=== PATIENT | female | born 1970 ===

== ENCOUNTER 2016-12-28 08:07 | Outpatient (CLI) | payer MEDICARE, MEDICAID ==
[~2016-12-28] VITALS: Ht 167.6 cm; Wt 142.6 kg
--- NOTE | ~2016-12-28 | OR ---
PATIENT'S NAME: ELSA BAHENA [facility] AGE: 46 Y [address] ROOM: [place] [address] [facility] ADMIT DATE: 12/28/2016 OR/Procedure Report DISCHARGE DATE: FAMILY PHYSICIAN: Martha Koehler MD ATTENDING PHYSICIAN: MARY MARIE SURGEON: Mary Marie MD HOUSE SERVANT: DATE OF PROCEDURE: 12/28/2016 Indication: Symptomatic atrial fibrillation PROCEDURE PERFORMED: Cardioversion. Rhythm prior to cardioversion: Atrial fibrillation Rhythm post cardioversion: Sinus rhythm DESCRIPTION OF PROCEDURE: The procedure was described to the patient. Risks and benefits were discussed with the patient, and informed consent was obtained. Anesthesia was provided by the team of anesthetists. The patient was given synchronized DC shocks with biphasic cardioverter defibrillator at 100 joules, 200 joules, and 300 joules, following which she converted to sinus rhythm at 61 beats per minute. The patient tolerated the procedure well. No immediate complications were seen. MARY MARIE MD LY/modl /[id number] d: 12/28/16 1140 t: 12/31/16 1823, OPERATIVE SUMMARY
[~2016-12-28 08:07] MED LIST: ALBUTEROL2.5 MG/0.5 INH; AMBIEN5 MG PO; CARDIZEM CD (T120 MG PO; CYANOCOBAL1000 MCG/1 SUB-Q; DIAMOX250 MG PO; DRISDOL 5050000 UNIT PO; INJECTAFER750 MG/15 IV; LOPRESSOR25 MG PO; MECLIZINE HCL25 MG PO; MEDROL4 M2; MOBIC15 MG PO; NEXIUM40 MG PO; NORCO 7.5-3251 EACH PO; NORVASC5 MG PO; OXYGEN M-15; PROMETHAZINE12.5 M1 PO; PROVENTIL OR V6.7 GM INH; STOOL SOFTENER100 M1 PO; SURFAK240 MG PO; SYMBICORT 16010.2 GM INH; TAMBOCOR100 MG PO; TESSALON PERLE100 MG PO; VALIUM10 MG PO; XARELTO20 MG PO; Z-PAK250 MG PO; ZOFRAN4 MG PO
--- NOTE | 2016-12-28 09:59 | NUR ---
12/28/[address] MARIE TO BEDSIDE. REQUESTED PORTABLE CXR AND TO CALL WITH RESULT. 1050 CXR COMPLETE. PATIENT C/O ANXIETY. Nata DE LEON CRNA NOTIFIED. 1MG IV VERSED GIVEN. TOLERATED WELL
== END 2016-12-28 18:00 | disposition disaster alternative care site (69) ==
LOC: GPOC 08:07 → GPCU 08:07 → GPOC 18:00
PROC: 5A2204Z Restoration of Cardiac Rhythm, Single (ICD-10-PCS; principal; 2016-12-28)
DX: I48.1 Persistent atrial fibrillation (principal); I10 Essential (primary) hypertension; S50.02XA Contusion of left elbow, initial encounter; S20.222A Contusion of left back wall of thorax, initial encounter; J45.909 Unspecified asthma, uncomplicated; F43.10 Post-traumatic stress disorder, unspecified; W18.09XA Striking against other object with subsequent fall, initial encounter; F41.0 Panic disorder [episodic paroxysmal anxiety]; Z79.891 Long term (current) use of opiate analgesic; Z79.51 Long term (current) use of inhaled steroids; Z79.899 Other long term (current) drug therapy; Z87.891 Personal history of nicotine dependence; Z82.49 Family history of ischemic heart disease and other diseases of the circulatory system; Z99.81 Dependence on supplemental oxygen
CPT/HCPCS: J2001; J2250; J7030

== ENCOUNTER 2017-03-27 18:20 | Observation (INO) | payer MEDICARE, MEDICAID ==
[~2017-03-27] VITALS: Ht 170.2 cm; Wt 150.5 kg
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
--- NOTE | ~2017-03-27 | ER ---
PATIENT'S NAME: ELSA BAHENA [facility] AGE: 46 Y [address] ROOM: [place] [address] LOCATION: [facility] ADMIT DATE: 03/28/2017 ER/Outpatient Report DISCHARGE DATE: FAMILY PHYSICIAN: PHYSICIAN, UNKNOWN ATTENDING PHYSICIAN: LUCIA EVANGELISTA V CHIEF COMPLAINT: Low back and right leg pain. HISTORY OF PRESENT ILLNESS: The patient states that she has chronic pain; however, her pain today is intolerable and she cannot walk. It is located in her right low back and gluteal region. She feels a grinding sensation and sharp sensation whenever she moves her leg. Today, the pain has been so bad that she cannot even move her leg and she notes a worsening weakness. She has taken her pain medicine and muscle relaxer for this with no improvement. No other acute findings. PAST MEDICAL HISTORY: Documented on the record and reviewed by me. SOCIAL HISTORY: Documented on the record and reviewed by me. MEDICATIONS: Documented on the record and reviewed by me. ALLERGIES: DOCUMENTED ON THE RECORD AND REVIEWED BY ME. REVIEW OF SYSTEMS: All systems reviewed and negative except as noted in the HPI. PHYSICAL EXAMINATION: VITAL SIGNS: Blood pressure 145/76, pulse is 69, respiratory rate is 20, temperature 98.7, SpO2 is 95% on room air. Pain is rated 10/10. GENERAL: An age appropriate female, in obvious pain. No acute distress. Flat on the exam table. NEUROLOGIC: The patient is awake and alert. GCS is 15. She does follow commands in all extremities. The right lower extremity is notable for marked weakness of the hip flexors, the quadriceps, and the calf muscle complex. She has intact sensation throughout. The strength of the right lower extremity is 2+ compared to 5/5 on the left in all muscle groups. HEENT: Normocephalic, atraumatic. Eyes are PERRL. Oropharynx is clear. PATIENT'S NAME: ELSA BAHENA [facility] AGE: 46 Y [address] ROOM: [address] [address] LOCATION: [facility] ADMIT DATE: 03/28/2017 ER/Outpatient Report DISCHARGE DATE: FAMILY PHYSICIAN: PHYSICIAN, UNKNOWN ATTENDING PHYSICIAN: KAGANAS,LUCIA V NECK: Supple. Trachea is midline. CHEST: Heart is regular rate and rhythm with no murmurs. LUNGS: Clear to auscultation bilateral with no rhonchi, wheezes, or rales. ABDOMEN: Soft, nontender, and nondistended. No rebound or guarding. BACK: Nontender in the midline. There is some right paraspinal tenderness and bruising over the right SI joint in the right sciatic nerve. EXTREMITIES: Warm and well perfused. SKIN: Dry and intact. No obvious rashes. LABORATORY DATA AND X-RAYS: MRI of the lumbar spine with no acute changes. No signs of cauda equina syndrome per radiology's read. IMPRESSION: Intractable right lower back pain, likely sciatica. EMERGENCY DEPARTMENT COURSE: The patient was seen and evaluated. She was given Toradol and multiple doses of Dilaudid with no improvement in her pain. The patient's neuro exam did improve with better pain control. However, it remained much weaker than noted from the prior notes from last fall. For these reasons, we will admit the patient to the hospitalist service. As I cannot control her pain adequately enough to get her to walk. Of note, on multiple re-evaluations, the patient was found to be texting comfortably on her phone, but would develop significant pain with any motion for the examiner. MD SHADI BARRIOS/joel /[id number] d: 03/28/17 1146 t: 04/03/17 0922, OUTPATIENT REPORT
--- NOTE | ~2017-03-27 | DS ---
PATIENT'S NAME: ELSA BAHENA [facility] AGE: 46 Y [address] ROOM: [address] [address] LOCATION: [facility] ADMIT DATE: 03/28/2017 Discharge Summary DISCHARGE DATE: 03/28/2017 FAMILY PHYSICIAN: Martha Koehler MD ATTENDING PHYSICIAN: Enzo Ayala V FINAL DIAGNOSES: 1. Severe low back pain. 2. Degenerative lumbar spine disease. 3. Chronic atrial fibrillation. 4. Long-term anticoagulation on Xarelto. REASON FOR ADMISSION: The patient was admitted with worsening lower back pain. In the emergency room, we were unable to control her pain with oral narcotics. She was admitted and placed on IV steroids. LABORATORY DATA: None. X-RAY DATA: MRI of the lumbar spine showed degenerative changes, but there was no evidence of cord compression. There was only mild bilateral foraminal narrowing at L4-L5. HOSPITAL COURSE: The patient was admitted after presenting to the emergency room with severe back pain. She was started on IV steroids. She was able to get some relief from the pain. Her other home medications were continued. The morning of the , she was up ambulating in the hallway with the nurses, and stated that she thought she would be able to go home. The patient was seen by myself; and at that time, I did have to stimulate her to wake her up. This was somewhat frustrating for her. At that time, she was told that she would be going home for 2 reasons, one that her pain was controlled, and then she was on observation status, and we would hope to get her out within 24 hours. She was very frustrated with this. I did speak at length with her primary care provider and she did concur with my plan to use oral steroids with a followup in the clinic. DISCHARGE INSTRUCTIONS: The patient is discharged to home. Recommended to see Dr. Koehler in 3-5 days. Office will contact her with an appointment time. DISCHARGE MEDICATIONS: 1. Valium 10 mg every 8 hours as needed for pain. 2. [place] 7.5/325 two every 6 hours as needed for pain. 3. Promethazine 12.5 mg p.o. every 6 hours for nausea. 4. Xarelto 20 mg daily. 5. Symbicort 160/4.5 2 puffs daily. 6. Albuterol 1 inhalation every 4 hours. PATIENT'S NAME: ELSA BAHENA [facility] AGE: 46 Y [address] ROOM: [address] [place] [id number] LOCATION: [facility] ADMIT DATE: 03/28/2017 Discharge Summary DISCHARGE DATE: 03/28/2017 FAMILY PHYSICIAN: Martha Koehler MD ATTENDING PHYSICIAN: Enzo Ayala V 7. Norvasc 5 mg at bedtime. 8. Injectafer 750 mg once monthly at [facility]. 9. Vitamin B12 a 1000 mcg subcu every 30 days. 10. Colace 200 mg at bedtime. 11. Nexium 40 mg daily. 12. Metoprolol 12.5 mg twice daily. 13. Tambocor 100 mg twice daily. 14. Meclizine 25 mg at bedtime. 15. Ambien 5 mg at bedtime. 16. Elavil 50 mg at bedtime. 17. Flonase 1 spray each nostril for allergies. 18. Medrol Dosepak, which she was instructed to start the morning of March 29. MARCE ABEBE MD LAW/modl /[id number] CC: Martha Koehler MD d: 03/29/17 0146 t: 03/29/17 192, DISCHARGE SUMMARY
[~2017-03-27 18:20] MED LIST changes: -ELAVIL50 MG PO; -FLONASE 50 MCG/16 GM NOSE; -FLORASTOR250 MG PO; -HUMIBID LA (MU600 MG PO; -LEVAQUIN 750 M750 MG PO; -PENICILLIN V P500 MG PO; -medrol dose pack
--- NOTE | 2017-03-28 04:11 | NUR ---
Patient admitted to floor by cart from emergency dept. C/O back pain not relieved by pain medication at home. MRI completed in emergency dept with some lumbar degenerative changes. History of L4-L5 stenosis. History of A.fib. Numbness to right leg. Oriented to person and place. Patient can state year and month. PERRLA 3.0
--- NOTE | 2017-03-28 04:21 | NUR ---
Significant Event: Arrived to floor at 0155. Admitted for pain in back. History of stenosis L4-L5. MRI done in emergency department showing lumbar degenerative changes. Follow up:
--- NOTE | 2017-03-28 04:57 | NUR ---
Significant Event: Patient arrived to floor at 0155 from emergency department. Ambulates 1A with walker and gait belt. Admitted for pain to back. MRI done in emergency department showing lumbar degenerative changes. IV to L)forearm. History of A.fib. Oriented to person and place. Oriented to month and year. Numbness to right leg. Zofran will be given for c/o nausea. K-pad in use. Follow up:
[2017-03-28] MEDS ORDERED: FLONASE 50 MCG/16 GM NOSE (08:26)
[2017-03-28] MEDS ORDERED: ELAVIL50 MG PO (08:26)
[2017-03-28] MEDS ORDERED: medrol dose pack (15:14)
--- NOTE | 2017-03-28 16:17 | NUR ---
written and verbal dismissal instructions given to pt. including diet, activity, prescriptions, blood clot prevention, med medication side effects and follow up care. verbalized understanding. awaiting ride home .
== END 2017-03-28 16:50 | disposition disaster alternative care site (69) ==
LOC: GMED 18:20 → GNTU 03-28 01:29
PROVIDERS: ADMIT Internal Medicine
DX: M54.5 Low back pain (principal); M51.36 Other intervertebral disc degeneration, lumbar region; I48.2 Chronic atrial fibrillation; E66.01 Morbid (severe) obesity due to excess calories; Z68.43 Body mass index [BMI] 50.0-59.9, adult; Z98.84 Bariatric surgery status; Z98.890 Other specified postprocedural states; Z79.01 Long term (current) use of anticoagulants; Z79.899 Other long term (current) drug therapy
CPT/HCPCS: C9113; G0378; G8978; G8979; G8980; G8987; G8988; G8989; J1170; J1885; J2405; J2920

== ENCOUNTER → 2017-03-27 | Outpatient (CLI) | payer MEDICARE, MEDICAID ==
[~2017-03-27] MED LIST changes: +ELAVIL50 MG PO; +FLONASE 50 MCG/16 GM NOSE; +FLORASTOR250 MG PO; +HUMIBID LA (MU600 MG PO; +LEVAQUIN 750 M750 MG PO; +PENICILLIN V P500 MG PO; +medrol dose pack
== END | disposition disaster alternative care site (69) ==
LOC: GAMB 17:54
DX: M54.9 Dorsalgia, unspecified (principal); G89.29 Other chronic pain; M84.48XD Pathological fracture, other site, subsequent encounter for fracture with routine healing; Z79.891 Long term (current) use of opiate analgesic
CPT/HCPCS: A0425; A0429

== ENCOUNTER 2017-05-05 14:43 | Inpatient (IN) | payer MEDICARE, MEDICAID ==
[~2017-05-05] VITALS: Ht 170.2 cm; Wt 148.6 kg
--- NOTE | ~2017-05-05 | HP ---
PATIENT'S NAME: ELSA BAHENA [facility] AGE: 46 Y [address] ROOM: [place] [address] LOCATION: [facility] ADMIT DATE: 05/05/2017 History & Physical DISCHARGE DATE: FAMILY PHYSICIAN: Martha Koehler MD ATTENDING PHYSICIAN: SARAH FELIX DATE OF SERVICE: ADDENDUM: The respiratory therapist brought a GlideScope in the emergency room and I was able to visualize the epiglottis and it was not inflamed. For further plan, refer to the original History and Physical for full details. MD NITHYA PRATT/joel /[id number] D: [id number] T: [id number] HISTORY & PHYSICAL
--- NOTE | ~2017-05-05 | PUL ---
PATIENT'S NAME: ELSA BAHENA [facility] AGE: 46 Y [address] ROOM: [place] [address] LOCATION: [facility] ADMIT DATE: 05/05/2017 Pulmonary DISCHARGE DATE: 05/09/2017 FAMILY PHYSICIAN: Martha Koehler MD ATTENDING PHYSICIAN: Michael Perdomo NAME OF PROCEDURE: Bedside Spirometry DATE OF PROCEDURE: May 06, 2017 TECH: ERMIAS Ramirez REASON FOR EXAM: Shortness of breath RESULTS: Spirometry revealed decreased FVC at 2.34 at 59% predicted, decreased FEV1 at 1.93 which is 60% predicted, normal FEV1/FVC ratio 82%. There are a significant bronchodilator response at the level of FEV1 and FVC. PHYSICIAN INTERPRETATION: This spirometry is suggestive of restrictive disease, full PFT is recommended for full lung volume evaluation. MD JOYCE HOPKINS/rahul /[id number] dtt: 07/16/17 Debora Serrato George S. dtd: 07/11/17 1126
--- NOTE | ~2017-05-05 | HP ---
[facility] 46 Y [address] ROOM: [place] [address] LOCATION: [facility] ADMIT DATE: 05/05/2017 History & Physical DISCHARGE DATE: FAMILY PHYSICIAN: Martha Koehler MD ATTENDING PHYSICIAN: SARAH FELIX DATE OF SERVICE: CHIEF COMPLAINT: Sore throat, and chills. HISTORY OF PRESENT ILLNESS: This is a 46-year-old, female who says that since last Saturday the patient has been experiencing chills and subjective sensation of fever, but she did not take any temperature at home. She also has sore throat and occasional dysphagia, but she denies any cough or chest pain or palpitation or shortness of breath. She also denies any saliva drooling or hot potato voice. These symptoms just kept progressively getting worse and today she came here for evaluation. The patient has not taken any antibiotics recently. The patient states that she does have recent sick contact where her and her son were sick with flu recently and they have already recovered. The patient says that she has had strep throat infection once many years ago when she was very young that she could hardly remember any details and was also not really sure if it was really a strep throat infection or not. The patient denies any confusion or any fall or any other symptoms. REVIEW OF SYSTEMS: As mentioned in History of Present Illness. All other systems were reviewed and they were negative except for those mentioned in the History of Present Illness. PAST MEDICAL HISTORY: 1. Hypertension. 2. Paroxysmal atrial fibrillation, on Xarelto and rate control and also antiarrhythmic. ALLERGIES: LORCET WHICH CAUSES RASH. HOME MEDICATIONS: Currently is being reconciled. SOCIAL HISTORY: The patient denies any cigarette or any illegal drug use. She is a social alcohol drinker, but she denies any alcohol abuse or any alcohol withdrawal. [facility] 46 Y [address] ROOM: [place] [address] LOCATION: [facility] ADMIT DATE: 05/05/2017 History & Physical DISCHARGE DATE: FAMILY PHYSICIAN: Martha Koehler MD ATTENDING PHYSICIAN: SARAH FELIX PAST SURGICAL HISTORY: 1. Status post left knee surgery. 2. Tubal ligation. 3. Hysterectomy. 4. Gastric bypass surgery in the past in 2000. 5. Cholecystectomy. 6. Appendectomy. FAMILY HISTORY: Mother had CKD, requiring dialysis. Father she could not remember much details, but says he also had diabetes. PHYSICAL EXAMINATION: VITAL SIGNS: At the time of my dictation, temperature 99.0, blood pressure 136/87, MAP of 75, respirations 16, heart rate 90, and saturation 97% on 1 L nasal cannula. GENERAL APPEARANCE: The patient is alert and oriented x3. The patient looks uncomfortable, but not in respiratory distress. HEENT: Pupils equally round and reactive to light. Extraocular muscles intact. Anicteric sclerae. Nasal turbinates are normal bilaterally. In the oropharynx, she does have swollen tonsils and also erythematous tonsils, but I could not appreciate exudates. CARDIOVASCULAR: Normal S1 and S2. Regular rate and rhythm. No murmurs. No rubs. No gallops. RESPIRATORY: Clear to auscultation. No rales. No rhonchi. No wheezing. No crackles. ABDOMEN: Obese, soft, nontender, nondistended, no mass, and bowel sounds are present. EXTREMITIES: No edema in upper or lower extremities. NEUROLOGICAL: Grossly nonfocal. SKIN: No ulcer, no rash, no cyanosis, but she is warm to touch. No erythema. LABORATORY DATA: Lactic acid 1.7, CPK 41, and troponin is less than 0.04. ProBNP is 365. White blood cells 20.5, hemoglobin 13.8, hematocrit 41.3, MCV 92.8, and platelets 223,000. Glucose 115, BUN 9, creatinine 0.8, sodium 140, potassium 3.9, chloride 106, CO2 of 22, calcium 8.6, total protein 7.1, albumin 3.0, AST 87, ALT 174, alkaline phosphatase 144, total bilirubin 0.6, and GFR more than 60. Anion gap 15.9, ESR 6. INR 1.17, PTT of 32. Urinalysis; 25 leukocytes, negative nitrite, 5-10 white blood cells, and a few bacteria. CK-MB is less than 0.5. Influenza antigen A and B screen negative. Procalcitonin is less than 0.05. IMAGING STUDIES: PATIENT'S NAME: ELSA BAHENA [facility] AGE: 46 Y [address] ROOM: [id number] [place], [place] [address] [facility] ADMIT DATE: 05/05/2017 History & Physical DISCHARGE DATE: FAMILY PHYSICIAN: Martha Koehler MD ATTENDING PHYSICIAN: SARAH FELIX EKG on admission showed sinus rhythm, heart rate of 97 beats per minute, FL 162 msec, QRS 130 milliseconds, and QTc is 389 milliseconds. Incomplete right bundle-branch block. T-wave inversion in the inferior leads. No ST elevation or ST depression. EMERGENCY ROOM COURSE: In the emergency room, the patient got 1 L of normal saline followed by the second liter running at 500 mL/h. The patient also got 1 dose of IV Zosyn that was given in the emergency room. Also got 1 dose of Tylenol p.o. 650 mg x1. ASSESSMENT AND PLAN: 1. Streptococcus pharyngitis with systemic inflammatory response syndrome: The sepsis order set has already been completed and is in the chart. The patient meets the criteria for systemic inflammatory response syndrome. Plan will be to continue with antibiotics and we will continue with the p.o. penicillin V 500 mg p.o. t.i.d. This is the first line choice for strep throat pharyngitis. IV fluids for hydration in the setting of systemic inflammatory response syndrome. P.o. Florastor 250 mg p.o. b.i.d. Follow up with the blood cultures and also urine culture. Repeat laboratories again in the morning. I am going to call the respiratory therapist or the certified registered nurse of Anesthesia to bring the GlideScope to look at her epiglottis to make sure that she also does not have typical looking epiglottitis due to her complaining of intermittent dysphagia. Fever controlled with p.o. Tylenol alternating with ibuprofen p.r.n. Protonix 40 mg p.o. daily. Further plan depends on clinical course. 2. Pain control for Streptococcus pharyngitis: I will use IV morphine p.r.n. She also has Tylenol and also ibuprofen p.r.n. for both fever and pain. Further plan depends on clinical course. I will also have her wear the EtCO2 monitor at all times. To monitor closely for the airway, to make sure she does not have any airway obstruction from the streptococcal pharyngitis. Given that patient is an obese patient, an airway will be difficult. Currently, the patient denies any shortness of breath and saturation is 98% on room air. Watch closely for the airway compromise. 3. Paroxysmal atrial fibrillation: Continue home medications which include antiarrhythmic and also with Xarelto. I will hold the rate control medication for now in the setting of systemic inflammatory response syndrome to not cause hypotension. Can always resume if necessary and if the blood pressure tolerates. 4. Transaminitis: This seems to be chronic based on the [employer] and she is already status post cholecystectomy. This could be nonalcoholic steatohepatitis due to her obesity. I will just trend the liver function testing again in the morning. She denies any abdominal pain in the right PATIENT'S NAME: ELSA BAHENA [facility] AGE: 46 Y [address] ROOM: [place] [address] [facility] AD[facility] DATE: 05/05/2017 History & Physical DISCHARGE DATE: FAMILY PHYSICIAN: Martha Koehler MD ATTENDING PHYSICIAN: SARAH FELIX [facility]. Hepatitis was also already checked back in 2014 and both the hepatitis C and B were nonreactive. 5. Deep venous thrombosis prophylaxis: The patient is already on Xarelto. 6. Code Status: She is a full code. Time spent in care on the day of admission 45 minutes where 25 minutes were spent in counseling and also by going over the plan of care with the patient and addressing all her questions and concerns. The remainder of the time was spent in interview, chart review, and also on the physical examination. Right now, I am going to call the respiratory therapist or Anesthesia to bring the GlideScope to look at her epiglottis. Further plan depends on clinical course. SARAH FELIX MD CC/modl /[id number] D: [id number] T: [id number] HISTORY & PHYSICAL
--- NOTE | ~2017-05-05 | DS ---
PATIENT'S NAME: ELSA BAHENA [facility] AGE: 46 Y [address] ROOM: [id number] [place] [address] LOCATION: GPCU ADMIT DATE: 05/05/2017 Discharge Summary DISCHARGE DATE: 05/09/2017 FAMILY PHYSICIAN: Martha Koehler MD ATTENDING PHYSICIAN: Michael Perdomo PRIMARY DIAGNOSES: 1. Sepsis. 2. Streptococcal pharyngitis. 3. E. coli urinary tract infection. 4. Asymptomatic bradycardia. 5. History of paroxysmal atrial fibrillation. 6. Morbid obesity. 7. Epiglottitis. PRINCIPAL PROCEDURES: None was indicated in the patient. LABORATORY DATA: On admission, lactic acid was 1.7, prior to discharge was 0.6, troponin was less than 0.040. Pro-BNP was 365. WBC prior to discharge was 12.7, H and H was stable at 12.2/37.7, and platelet was 226. Sodium was stable throughout the hospital stay, sodium was 145 upon discharge, potassium was 4.0, bicarb was 28, calcium was 8.5, BUN was 11, creatinine was stable throughout the hospital stay at 0.7, AST was 87, prior to discharge was 46, ALT was 174 upon discharge, prior to discharge was 121, albumin was 2.8, total bili was 0.6, and direct bili was 0.1. UA procalcitonin repeat was 0.15. Flu test was negative. MICROBIOLOGY: Urine drug screen was positive for E. coli greater than 100,000. Blood cultures were no growth. Strep throat was positive. Blood culture, no growth. RADIOLOGY: Chest x-ray, suboptimal inspiration, accentuated cardiac silhouette and bronchovascular markings. No focal infiltrate, pleural effusion, or pneumothorax is identified. X-rays of neck diffuse thickening of the epiglottis concerning for epiglottitis. CT of the head without contrast unremarkable CT exam of the brain. Abdominal ultrasound, surgically absent gallbladder, minimal left renal collecting system prominence, uncertain etiology, no acute findings. HOSPITAL COURSE: For history of present illness, please take a look at the H and P, which was done by Dr. Perdomo. The patient was initially admitted to Progressive Care Unit; however, following the pharyngeal examination and revealing swollen epiglottis, the patient was transferred to ICU for observation, she was also promptly started on Solu-Medrol, which she had for 3 days. She was observed in ICU, she required about 6 L of oxygen though the PATIENT'S NAME: ELSA BAHENA [facility] AGE: 46 Y [address] ROOM: [id number] [place], [place] [address] LOCATION: GPCU ADMIT DATE: 05/05/2017 Discharge Summary DISCHARGE DATE: 05/09/2017 FAMILY PHYSICIAN: Martha Koehler MD ATTENDING PHYSICIAN: Michael Perdomo patient has nocturnal hypoxemia requiring 1 to 2 L of oxygen at bedtime. Given the admitting diagnoses of streptococcal pharyngitis, she was started on broad-spectrum antibiotics of penicillin V and ceftriaxone. By the next day, the antibiotics was deescalated to penicillin V; however, her urine culture came back positive for E. coli and ceftriaxone was switched to Levaquin. Following 24-hours monitoring in the ICU, she was transferred out of the ICU back to PCU. While in PCU, she was successfully weaned off oxygen to room air. She continued to tolerate her diet without any dysphagia or odynophagia. The night before discharge, it was observed that her heart rate went down to as low as 34 without symptoms. Her flecainide was held and I did discuss with Dr. Bishop regarding this and he recommended that the patient's metoprolol 12.5 mg p.o. b.i.d. should be discontinued and that the patient could continue on her flecainide so that she does not go into AFib. Last pulse prior to discharge was 60 and her a.m. flecainide was held and the patient was to take her next dose of flecainide at nighttime. She did pretty well with physical therapy and also occupational therapy. Her white cell count continued to trend down well; and on the day of discharge, her vital signs were stable, she was asymptomatic, and she was discharged home. DISCHARGE INSTRUCTIONS: Includes the patient is to visit with her PCP in the next 3 to 4 days. PCP is to repeat CBC on visit and the patient is to follow with Dr. Bishop in the next 7 days and the patient has an appointment sometime in May to follow up with likely an EP doctor from [place] who will be coming to [place]. MEDICATIONS ON DISCHARGE: Includes: 1. Amitriptyline 50 mg p.o. q.h.s. 2. Flecainide 100 mg p.o. twice daily. 3. Norvasc 5 mg p.o. q.h.s. 4. Docusate 200 mg p.o. q.h.s. 5. Nexium 40 mg p.o. q.h.s. 6. Oxygen tank. 7. Flonase 1 spray in nose everyday p.r.n. 8. Humibid 1200 mg p.o. twice daily. 9. Meclizine 25 mg p.o. q.h.s. 10. Penicillin V 500 mg p.o. 3 times daily for an additional 6 days to make a total of 10 days of antibiotics of penicillin V. 11. [place] 7.5/325 mg 2 tablets p.o. q.6 h. p.r.n. 12. Florastor 250 mg p.o. twice daily. 13. Valium 10 mg p.o. q.8 h. p.r.n. 14. Ambien 5 mg p.o. q.h.s. 15. Promethazine 12.5 mg p.o. q.6 h. p.r.n. 16. Symbicort 160/4.5 mcg inhaler 2 puffs INH daily p.r.n. 17. Proventil 1 puff every 4 hours p.r.n. 18. Ferric 750 mg IV x1. PATIENT'S NAME: ELSA BAHENA [facility] AGE: 46 Y [address] ROOM: [place] [address] [facility] AD[facility] DATE: 05/05/2017 Discharge Summary DISCHARGE DATE: 05/09/2017 FAMILY PHYSICIAN: Martha Koehler MD ATTENDING PHYSICIAN: Michael Perdomo 19. Vitamin B12 1000 mcg subcu every 30 days. 20. Levaquin 750 daily p.o. for 4 more days. MD YESI HENRIQUEZ/joel /[id number] d: 05/10/17 0333 t: 05/11/17 1429, DISCHARGE SUMMARY
--- NOTE | ~2017-05-05 | HP ---
PATIENT'S NAME: ELSA BAHENA [facility] AGE: 46 Y [address] ROOM: [id number] [place], [place] [address] LOCATION: [facility] ADMIT DATE: 05/05/2017 History & Physical DISCHARGE DATE: FAMILY PHYSICIAN: Martha Koehler MD ATTENDING PHYSICIAN: SARAH FELIX DATE OF SERVICE: ADDENDUM: The lateral neck x-ray came back and I spoke to Dr. Christensen who says that the lateral neck x-ray looks like the epiglottis is diffusely thickened concerning for epiglottitis. The GlideScope that was performed in the emergency room did not show inflamed epiglottitis. The patient is not currently in respiratory distress. There is no cyanosis. The saturation on 2 L, saturating 97%. The patient is not tachypneic. There is no drooling. There is no respiratory distress. The patient is not in tripod or sniffing position. The patient is not in distress in general. Due to the concern of the finding on the lateral x-ray, I already made a phone call to the on-call anesthesiologist, Dr. Lockwood. I told him about the case, that in case the patient developed respiratory distress, the patient is a difficult airway and I will require his help for intubation. Given the patient's weight more than 150 kg, has a thick neck, and therefore, she will be an a difficult airway case for intubation. Dr. Lockwood listened to my case and given that currently the patient is not in distress and the patient is able to lie flat without having respiratory distress, currently does not require intubation. The patient has been treated with IV vancomycin and IV ceftriaxone for empiric coverage for epiglottitis. Dr. Lockwood did tell me that if the patient required intubation, the patient will be taken down to the operating room and we need help from ENT. Therefore, I also called ENT, the on- call ENT is Dr. Alonso and I told him about the case and I also asked him to please come by to see the patient to examine the epiglottis given that I do not appreciate any inflammation; however, the radiologist, Dr. Christensen did tell me that the lateral neck x-ray looks moderately thickened, concerning for epiglottitis. Once again, the patient is not in distress; therefore, Dr. Alonso tells me that he would not be coming in because the patient is not in respiratory distress; therefore, nothing he would have done for the patient anyway at this point. However, if patient does develop respiratory distress, Dr. Alonso and Dr. Lockwood are aware of the case and they will be coming in to assist with intubation should the patient's condition decompensate. I have already made all the arrangements in case the patient developed respiratory distress requiring emergent intubation. In addition, I will put a consult for Pulmonology in the morning for evaluation of the airway also. Further plan will depend on clinical course. The patient is currently in ICU. PATIENT'S NAME: ELSA BAHENA [facility] AGE: 46 Y [address] ROOM: [address] [place] [address] LOCATION: [facility] ADMIT DATE: 05/05/2017 History & Physical DISCHARGE DATE: FAMILY PHYSICIAN: Martha Koehler MD ATTENDING PHYSICIAN: SARAH FELIX SARAH FELIX MD CC/modl /[id number] D: T: HISTORY & PHYSICAL
--- NOTE | ~2017-05-05 | ER ---
PATIENT'S NAME: ELSA BAHENA [facility] AGE: 46 Y [address] ROOM: [id number] [place], [place] [address] [facility] AD[facility] DATE: 05/05/2017 ER/Outpatient Report DISCHARGE DATE: FAMILY PHYSICIAN: Martha Koehler MD ATTENDING PHYSICIAN: SARAH FELIX Time of Arrival: 1443 hours. Time of Evaluation/Seen: 1457 hours. IDENTIFICATION: A 46-year-old female. CHIEF COMPLAINT: Fever. HISTORY OF PRESENT ILLNESS: The patient states that "I just do not feel good." I am "cold." She started feeling poorly on Saturday, but she is a little vague on the symptoms. She started running a fever on Saturday, and she had fever, chills, shortness of breath, and cough which is dry but she had some posttussive emesis. She has had a lot of sputum in her throat. She does have a slight throat and then diffuse myalgias and a headache. No numbness or tingling. She has nausea and vomiting. No diarrhea. No blood in her stools. No dark, tarry, or black stools. No dysuria. No increased frequency of urination. ALLERGIES: NO KNOWN DRUG ALLERGIES. CURRENT MEDICATIONS: She did not bring a list of her medications with her. I did print a recent medication list from her hospital stay in March that included: 1. Diazepam 10 mg q.8 hours as needed. 2. Hydrocodone and acetaminophen 5/325, 2 tablets q.6 hours p.r.n. 3. Promethazine 12.5 mg q.6 hours p.r.n. 4. Rivaroxaban 20 mg at bedtime. 5. Budesonide and formoterol 160/4.5, 2 puffs daily. 6. Albuterol 1 puff q.4 hours p.r.n. 7. Amlodipine 5 mg at bedtime. 8. Injectafer 750 mg once a month as needed per Dr. Rivera. 9. Vitamin B12, 1000 mcg subcutaneous once a month. 10. Docusate 200 mg at bedtime. 11. Nexium 40 mg at bedtime. 12. Metoprolol 12.5 mg b.i.d. 13. Flecainide 100 mg b.i.d. 14. Meclizine 25 mg at bedtime. PATIENT'S NAME: ELSA BAHENA [facility] AGE: 46 Y [address] ROOM: [address] [address] [facility] AD[facility]: 05/05/2017 ER/Outpatient Report DISCHARGE DATE: FAMILY PHYSICIAN: Martha Koehler MD ATTENDING PHYSICIAN: SARAH FELIX 15. Zolpidem 5 mg at bedtime. 16. O2 at bedtime. 17. Amitriptyline 50 mg at bedtime. 18. Fluticasone nasal spray 1 spray to each nostril daily. MEDICAL PROBLEMS: 1. Degenerative lumbar spine disease. 2. Sciatica. 3. Atrial fibrillation, on chronic anticoagulation. 4. Hypertension. 5. Morbid obesity. 6. PTSD. 7. Asthma. PAST SURGICAL HISTORY: Prior surgeries: 1. Gastric bypass. 2. Left knee surgery. 3. Cholecystectomy. 4. Hysterectomy. SOCIAL HISTORY: The patient is , lives here in [place]. Tobacco use, denies. Alcohol use, denies. Drug use, denies. REVIEW OF SYSTEMS: All systems were reviewed and negative other than what is noted in the HPI. FAMILY HISTORY: No pertinent family history identified. PHYSICAL EXAMINATION: VITAL SIGNS: Blood pressure 119/56, pulse 119, respirations 20, temperature 102.0, and sats 93% on room air. GENERAL: A 46-year-old female, who does appear acutely ill. HEENT: Head; normocephalic and atraumatic. Ears; TMs translucent in both ears. Eyes; pupils equal and reactive to light and accommodation. Extraocular movements intact. Nose; mucosa pink. No lesions or drainage. Mouth; no lesions. Pharynx; diffusely erythematous. Some hypertrophy, no exudate. NECK: Supple. No lymphadenopathy. No nuchal rigidity. LUNGS: Clear to auscultation. Breath sounds are equal. No rhonchi, wheezes, or rales. HEART: Sinus tachycardia. No murmur, rub, or gallop. ABDOMEN: Bowel sounds present. Soft, nondistended. No hepatosplenomegaly. PATIENT'S NAME: ELSA BAHENA [facility] AGE: 46 Y [address] ROOM: [id number] [place], [place] [address] [facility]: 05/05/2017 ER/Outpatient Report DISCHARGE DATE: FAMILY PHYSICIAN: Martha Koehler MD ATTENDING PHYSICIAN: SARAH FELIX No palpable masses. Nontender. SKIN: [place], warm, and dry. No lesions or rashes noted. NEUROLOGIC: The patient is alert and oriented x4. Cranial nerves 2 through 12 grossly intact. Motor strength 5/5 throughout. Sensation is intact to light touch. Mucous membranes are dry. EMERGENCY DEPARTMENT COURSE: An IV was initiated. Laboratory was obtained to include blood cultures. IV fluids were initiated at 1 L of bolus. Sodium 140, potassium 3.9, chloride 106, CO2 of 22, BUN 9, creatinine 0.8, and blood sugar 115. Liver enzymes elevated. Alkaline phosphatase 144, AST 87, and ALT 174. EKG sinus rhythm, 97 beats per minute. No acute ST elevation or depression. Incomplete right bundle branch block. No significant change when compared to previous EKG. Influenza A and B negative. UA: Specific gravity 1.010, pH of 8, 5-10 white cells, 0-2 red cells, and 2-5 epithelial cells. Urine culture; pending. Procalcitonin is less than 0.05. CPK 41, CK-MB is less than 0.5. Troponin I less than 0.040. ProBNP 103, 165. Strep screen is positive. Hemoglobin 13.8, hematocrit 41.3, platelets 223,000, and white count 20.5 with 85% neutrophils. Lactate 1.7. Chest x-ray, poor inspiratory effort. No definite infiltrate, but there is a question of a right middle lobe infiltrate. Pending Radiology over-read. Head CT without contrast, negative per Radiology. IMPRESSION AND PLAN: 1. Acute streptococcal pharyngitis with systemic inflammatory response syndrome criteria. 2. Dehydration. Plan IV fluid bolus here in the emergency room 1 L. Further fluid bolus ordered by Dr. Felix as he evaluated the patient in the emergency room. 3. Elevated liver enzymes. 4. History of atrial fibrillation, on chronic anticoagulation. 5. Possible urinary tract infection, urine culture pending. Zosyn initiated in the emergency room per the sepsis order set at 4.5 g IV. 6. Hypoxia. The patient's O2 saturation on arrival was 93%. She was falling asleep here, did drift down to 85% to 86%, was placed on 2 L of O2 per nasal cannula which she does wear while sleeping at home. 7. Morbid obesity. 8. The patient was admitted per Dr. Felix, who evaluated the patient in the emergency room and was taken to the floor in stable condition. JAMAAL MCCARTHY MD PATIENT'S NAME: ELSA BAHENA [facility] AGE: 46 Y [address] ROOM: [place] [address] [facility]: 05/05/2017 ER/Outpatient Report DISCHARGE DATE: FAMILY PHYSICIAN: Martha Koehler MD ATTENDING PHYSICIAN: SARAH FELIX/joel /[id number] d: 05/05/171937 t: 05/11/17 2019, OUTPATIENT REPORT
[~2017-05-05 14:43] MED LIST changes: +ELAVIL50 MG PO; +FLONASE 50 MCG/16 GM NOSE; +medrol dose pack
[2017-05-05 15:26] LABS: BASOPHIL % 0.2 %; HEMATOCRIT 41.3 % (33.0-46.0); HEMOGLOBIN 13.8 g/dL (10.0-15.0); IMMATURE GRANULOCYTE # 0.1 K/uL (0.0-0.3); IMMATURE GRANULOCYTE % 0.5 %; LYMPHOCYTE # 1.6 K/uL (0.8-4.0); LYMPHOCYTE % 7.7 %; MCHC 33.4 gm/dL (32.0-36.5); MCV 92.8 fl (83.0-98.0); MONOCYTE # 1.2 K/uL (0.0-1.0); MONOCYTE % 5.7 %; MPV 10.5 fl (9.4-12.4); NEUTROPHIL # (ANC) 17.6 K/uL (1.8-7.8); NEUTROPHIL % 85.9 %; NRBC % 0 /100WBC (0-0.00); PLATELET COUNT 223 K/uL (150-450); RBC 4.45 M/uL (3.50-5.50)
[2017-05-05 15:29] LABS: WBC 20.5 K/uL (4.0-11.0)
[2017-05-05 15:31] LABS: INR - (THERAPEUTIC) 1.17 (0.92-1.07); PROTIME 12.3 SECONDS (9.8-11.4); PTT 32 SECONDS (25-32)
[2017-05-05 15:42] LABS: CPK 41 IU/L (21-215)
[2017-05-05 15:54] LABS: BILIRUBIN URINE NEGATIVE (NEGATIVE); BLOOD URINE 10 /UL (NEGATIVE); COLOR URINE YELLOW (YELLOW); GLUCOSE URINE NEGATIVE (NEGATIVE); KETONE URINE NEGATIVE (NEGATIVE); LEUKOCYTES URINE 25 /UL (NEGATIVE); NITRITE URINE NEGATIVE (NEGATIVE); PROTEIN URINE NEGATIVE (NEGATIVE); TURBIDITY URINE CLEAR (CLEAR); UROBILINOGEN URINE NORMAL (NORMAL)
[2017-05-05 16:01] LABS: BACTERIA URINE FEW (NEGATIVE); RBC URINE 0-2 #/HPF (NEGATIVE)
[2017-05-05 16:27] LABS: ALK PHOS 144 IU/L (33-138); ALT 174 IU/L (12-78); BLOOD UREA NITROGEN 9 mg/dL (6-24); CALCIUM 8.6 mg/dL (8.5-10.5); CHLORIDE 106 mMol/L (96-110); CO2 22 mMol/L (22-32); CREATININE 0.8 mg/dL (0.5-1.1); ESTIMATED GFR (MDRD EQUATION) > 60; SODIUM 140 mMol/L (135-145); TOTAL BILIRUBIN 0.6 mg/dL (0.0-1.5); TOTAL PROTEIN 7.1 g/dL (6.0-8.4)
[2017-05-05 16:29] LABS: ANION GAP 15.9 (10.0-19.0); AST 87 IU/L (10-40); POTASSIUM 3.9 mMol/L (3.7-5.1)
[2017-05-05] MEDS ORDERED: HUMIBID LA (MU600 MG PO (19:31)
[2017-05-06 05:19] LABS: BASOPHIL % 0.1 %; HEMATOCRIT 41.3 % (33.0-46.0); HEMOGLOBIN 13.3 g/dL (10.0-15.0); IMMATURE GRANULOCYTE # 0.2 K/uL (0.0-0.3); IMMATURE GRANULOCYTE % 0.8 %; LYMPHOCYTE % 4.6 %; MCH 31.1 pg (27.0-34.0); MCHC 32.2 gm/dL (32.0-36.5); MCV 96.5 fl (83.0-98.0); MONOCYTE # 0.4 K/uL (0.0-1.0); MONOCYTE % 1.6 %; MPV 10.5 fl (9.4-12.4); NEUTROPHIL # (ANC) 20.3 K/uL (1.8-7.8); NEUTROPHIL % 92.9 %; NRBC % 0 /100WBC (0-0.00); PLATELET COUNT 191 K/uL (150-450); RBC 4.28 M/uL (3.50-5.50); RDW-CV 12.2 % (11.9-14.6)
[2017-05-06 05:20] LABS: WBC 21.9 K/uL (4.0-11.0)
[2017-05-06 05:38] LABS: ALBUMIN 2.8 gm/dL (3.5-5.0); ALK PHOS 128 IU/L (33-138); ALT 149 IU/L (12-78); ANION GAP 9.9 (10.0-19.0); AST 64 IU/L (10-40); BLOOD UREA NITROGEN 7 mg/dL (6-24); CHLORIDE 112 mMol/L (96-110); CO2 25 mMol/L (22-32); CREATININE 0.5 mg/dL (0.5-1.1); ESTIMATED GFR (MDRD EQUATION) > 60; MAGNESIUM 1.7 mg/dL (1.8-2.6); POTASSIUM 3.9 mMol/L (3.7-5.1); SODIUM 143 mMol/L (135-145); TOTAL PROTEIN 6.8 g/dL (6.0-8.4)
[2017-05-06 05:39] LABS: TOTAL BILIRUBIN 0.4 mg/dL (0.0-1.5)
[2017-05-07 04:48] LABS: BASOPHIL % 0.2 %; HEMATOCRIT 38.1 % (33.0-46.0); HEMOGLOBIN 12.3 g/dL (10.0-15.0); IMMATURE GRANULOCYTE # 0.2 K/uL (0.0-0.3); IMMATURE GRANULOCYTE % 0.9 %; LYMPHOCYTE # 0.6 K/uL (0.8-4.0); LYMPHOCYTE % 2.8 %; MCH 30.7 pg (27.0-34.0); MCHC 32.3 gm/dL (32.0-36.5); MONOCYTE # 0.5 K/uL (0.0-1.0); MONOCYTE % 2.4 %; MPV 10.8 fl (9.4-12.4); NEUTROPHIL # (ANC) 21.3 K/uL (1.8-7.8); NEUTROPHIL % 93.7 %; NRBC % 0 /100WBC (0-0.00); PLATELET COUNT 194 K/uL (150-450); RBC 4.01 M/uL (3.50-5.50); RDW-CV 12.4 % (11.9-14.6)
[2017-05-07 04:59] LABS: WBC 22.7 K/uL (4.0-11.0)
[2017-05-07 05:09] LABS: ALBUMIN 2.8 gm/dL (3.5-5.0); ALK PHOS 116 IU/L (33-138); ALT 121 IU/L (12-78); ANION GAP 10.1 (10.0-19.0); AST 46 IU/L (10-40); BLOOD UREA NITROGEN 8 mg/dL (6-24); CALCIUM 8.2 mg/dL (8.5-10.5); CHLORIDE 110 mMol/L (96-110); CO2 27 mMol/L (22-32); CREATININE 0.7 mg/dL (0.5-1.1); ESTIMATED GFR (MDRD EQUATION) > 60; MAGNESIUM 2.4 mg/dL (1.8-2.6); PHOSPHORUS 2.9 mg/dL (2.5-4.9); POTASSIUM 4.1 mMol/L (3.7-5.1); SODIUM 143 mMol/L (135-145); TOTAL BILIRUBIN 0.3 mg/dL (0.0-1.5); TOTAL PROTEIN 6.9 g/dL (6.0-8.4)
[2017-05-08 03:53] LABS: BASOPHIL % 0.1 %; HEMATOCRIT 37.4 % (33.0-46.0); HEMOGLOBIN 12.2 g/dL (10.0-15.0); IMMATURE GRANULOCYTE # 0.2 K/uL (0.0-0.3); IMMATURE GRANULOCYTE % 1.1 %; LYMPHOCYTE # 0.9 K/uL (0.8-4.0); LYMPHOCYTE % 5.2 %; MCH 31.1 pg (27.0-34.0); MCHC 32.6 gm/dL (32.0-36.5); MCV 95.4 fl (83.0-98.0); MONOCYTE # 0.4 K/uL (0.0-1.0); MONOCYTE % 2.3 %; NEUTROPHIL # (ANC) 16.5 K/uL (1.8-7.8); NEUTROPHIL % 91.3 %; NRBC % 0 /100WBC (0-0.00); PLATELET COUNT 222 K/uL (150-450); RBC 3.92 M/uL (3.50-5.50); RDW-CV 12.5 % (11.9-14.6)
[2017-05-08 04:05] LABS: BLOOD UREA NITROGEN 11 mg/dL (6-24); CALCIUM 8.5 mg/dL (8.5-10.5); CHLORIDE 110 mMol/L (96-110); CO2 28 mMol/L (22-32); CREATININE 0.7 mg/dL (0.5-1.1); ESTIMATED GFR (MDRD EQUATION) > 60; MAGNESIUM 2.2 mg/dL (1.8-2.6); SODIUM 145 mMol/L (135-145)
[2017-05-09 04:47] LABS: HEMATOCRIT 37.7 % (33.0-46.0); HEMOGLOBIN 12.2 g/dL (10.0-15.0); MCH 31.3 pg (27.0-34.0); MCHC 32.4 gm/dL (32.0-36.5); MCV 96.7 fl (83.0-98.0); MPV 11.1 fl (9.4-12.4); PLATELET COUNT 226 K/uL (150-450); RDW-CV 12.6 % (11.9-14.6); WBC 12.7 K/uL (4.0-11.0)
[2017-05-09 05:55] LABS: ABSOLUTE NEUTROPHIL CT (ANC) 8.1 K/uL (1.8-7.8); BANDED NEUTROPHIL # 0.3 K/uL (0.0-0.1); BANDED NEUTROPHILS % 2 %; LYMPHOCYTE # 3.8 K/uL (0.8-4.0); LYMPHOCYTE % 29 %; MONOCYTE # 0.6 K/uL (0.0-1.0); SEGMENTED NEUTROPHIL # 7.9 K/uL (1.8-7.8); SEGMENTED NEUTROPHIL % 62 %
[2017-05-09] MEDS ORDERED: PENICILLIN V P500 MG PO (11:09)
[2017-05-09] MEDS ORDERED: FLORASTOR250 MG PO (11:11)
[2017-05-09] MEDS ORDERED: LEVAQUIN 750 M750 MG PO (11:18)
== END 2017-05-09 12:30 | disposition disaster alternative care site (69) | DRG 871 ==
LOC: GMED 14:43 → GICU 16:57 → GPCU 16:57 → GICU 21:33 → GPCU 05-06 15:10
PROVIDERS: Family Medicine; Hospitalist; ADMIT Internal Medicine
DX: A40.9 Streptococcal sepsis, unspecified (principal); J96.01 Acute respiratory failure with hypoxia; J05.10 Acute epiglottitis without obstruction; Z68.43 Body mass index [BMI] 50.0-59.9, adult; E83.42 Hypomagnesemia; G47.34 Idiopathic sleep related nonobstructive alveolar hypoventilation; N39.0 Urinary tract infection, site not specified; R65.20 Severe sepsis without septic shock; E66.01 Morbid (severe) obesity due to excess calories; I10 Essential (primary) hypertension; J02.0 Streptococcal pharyngitis; I48.0 Paroxysmal atrial fibrillation; Z98.84 Bariatric surgery status; B96.20 Unspecified Escherichia coli [E. coli] as the cause of diseases classified elsewhere
CPT/HCPCS: J0696; J1956; J2270; J2405; J2543; J2930; J3370; J3420; J3475; J7030; J7040; J7050